=== PATIENT | female | born 1970 | race Two or more races ===

== ENCOUNTER 2018-12-09 13:48 | Emergency (ER) | payer MEDICAID ==
[~2018-12-09] VITALS: Ht 167.6 cm; Wt 106.0 kg
[2018-12-09 13:50] VITALS: BP 119/70
[2018-12-09] MEDS ORDERED: HYDROcodone/APAP 5/325 TABLET ONE (14:13)
[2018-12-09] MEDS ORDERED: HYDROcodone/APAP 5/325 TABLET PO ONE (14:30)
== END 2018-12-09 14:47 | disposition home or self-care (01) ==
LOC: ED 14:38
DX: S62.162A Displaced fracture of pisiform, left wrist, initial encounter for closed fracture (principal); E11.9 Type 2 diabetes mellitus without complications; J44.9 Chronic obstructive pulmonary disease, unspecified; I25.2 Old myocardial infarction; X58.XXXA Exposure to other specified factors, initial encounter; Y93.89 Activity, other specified; Y92.89 Other specified places as the place of occurrence of the external cause; Y99.8 Other external cause status
CPT/HCPCS: 99283

== ENCOUNTER 2020-04-01 16:32 | Inpatient (IN) | payer MEDICAID ==
[~2020-04-01] VITALS: Ht 167.6 cm; Wt 107.6 kg
[~2020-04-01 16:32] MED LIST: ALBU18HF INH; ASPI-515 PO; ATOR20TA37 PO; AZIT250T PO; B12/1TAB3 PO; BENZ-17 PO; BIOT1TAB3 PO; CEFD300C37 PO; CETI10TA18 PO; CHOL500062 PO; CLOB15CR19 TP; FLUO20CA23 PO; GABA-826 PO; GABA300C10 PO; GUAI600T31 PO; METF750T42 PO; MULT-252 PO; OMEG1CAP6 PO; OMEP20CA20 PO; PRED20TA PO; PSYL0.5243 PO
[2020-04-01] MEDS ORDERED: ALBUTEROL/IPRATROPIUM 2.5MG/0.5MG, 3 ML ONE (16:59)
[2020-04-01] MEDS ORDERED: ALBUTEROL/IPRATROPIUM 2.5MG/0.5MG, 3 ML NPPB SCH (17:00)
--- NOTE | 2020-04-01 17:08 | NUR ---
REPORT RECEIVED FROM VESTA KUHN. BREATHING TX STARTED PER ORDERS. PT PLACED ON MONITORS, VSS, NO RESPIR DISTRESS NOTED. WILL REASSESS. CONT TO MONITOR.
--- NOTE | 2020-04-01 17:40 | NUR ---
PT. COMPLETED HER BREATHING TX AND IS RESTING WITHOUT CONCERNS. CP MONITOR REMAINS IN PLACE. SIDERAILS ARE UP X 2 WITH THE CALL LIGHT IN REACH.
[2020-04-01 17:46] LABS: BASOPHILS # (AUTO) 0.05 x10^3/uL (0-0.1); BASOPHILS % (AUTO) 1 % (0-1); EOSINOPHILS % (AUTO) 6 % (1-7); LYMPHOCYTES # (AUTO) 3.46 x10^3/uL (1-3.4); LYMPHOCYTES % (AUTO) 32 % (22-44); MD NO; MEAN CORPUSCULAR HEMOGLOBIN 29.6 pg (27.0-34.8); MEAN CORPUSCULAR HGB CONC 32.9 g/dL (32.4-35.8); MONOCYTES % (AUTO) 8 % (2-9); NEUTROPHILS # (AUTO) 5.78 x10^3/uL (1.8-6.8); NEUTROPHILS % (AUTO) 54 % (42-75); PLATELET COUNT 235 x10^3/uL (130-400); RED BLOOD COUNT 5.05 x10^6/uL (3.82-5.3); RED CELL DISTRIBUTION WIDTH 13.5 % (9.6-15.2)
[2020-04-01 17:54] LABS: ALBUMIN 3.6 g/dL (3.4-5.0); ANION GAP 7 mmol/L (5-15); CALCIUM 8.5 mg/dL (8.5-10.1); CHLORIDE 107 mmol/L (98-107)
[2020-04-01 17:57] LABS: CREATININE 0.71 mg/dL (0.55-1.02)
--- NOTE | 2020-04-01 18:49 | NUR ---
REPORT GIVEN TO NOC SHIFT.
--- NOTE | 2020-04-01 19:06 | NUR ---
PER DR. BALLARD, NO ABX/ FLUIDS AT THIS TIME. THOUGH PT HAS ELEVATED WBC AND LACTIC NO SOURCE OF INFECTION NOTED PER MD.
--- NOTE | 2020-04-01 19:24 | NUR ---
PT UP TO [facility], NO ASSIST REQIRED.
[2020-04-01] MEDS ORDERED: SODIUM CHLORIDE FLUSH 10ML SYR IVF PRN (19:30)
--- NOTE | 2020-04-01 19:39 | NUR ---
REPORT TO ALISON SHEPHERD READY FOR TRANSPORT TO FLOOR
--- NOTE | 2020-04-01 19:47 | NUR ---
HOSPITALIST AT BEDSIDE TO ADMIT PT AT THIS TIME
[2020-04-01 20:04] VITALS: BP 125/74
[2020-04-01] MEDS ORDERED: ONDANSETRON ODT 4 MG PO PRN (20:30)
[2020-04-01] MEDS ORDERED: GUAIFENESIN/COD200MG-20MG/10ML LIQUID PO PRN (20:30)
[2020-04-01] MEDS ORDERED: POLYETHYLENE GLYCOL 17 GM PACKET PO PRN (20:30)
[2020-04-01] MEDS ORDERED: BISACODYL 10 MG SUPP PR PRN (20:30)
[2020-04-01] MEDS ORDERED: METF500T27 PO (20:38)
[2020-04-01] MEDS: ATORVASTATIN 20 MG TABLET PO SCH ×2 (21:00→22:21)
[2020-04-01] MEDS ORDERED: GABAPENTIN 300 MG CAPSULE PO SCH (21:00)
[2020-04-01] MEDS ORDERED: metFORMIN 500 MG TABLET PO SCH (21:00)
[2020-04-01] MEDS ORDERED: GABA-827 PO (21:08)
[2020-04-01] MEDS ORDERED: FLUO40CA2 PO (21:10)
[2020-04-01] MEDS ORDERED: HYDR-2995 PO (21:16)
[2020-04-01] MEDS: HEPARIN 5,000 UNITS/ML, 1ML SQ SCH (22:21)
[2020-04-01] MEDS: hydrOXyzine 10MG TABLET PO SCH (22:21)
[2020-04-01] MEDS: GABAPENTIN 400 MG CAPSULE PO SCH (22:21)
[2020-04-01] MEDS: SODIUM CHLORIDE FLUSH 10ML SYR IVF SCH (22:23)
[2020-04-01] MEDS: ACETAMINOPHEN 325 MG TABLET PO PRN (22:38)
[2020-04-01] MEDS: ALBUTEROL HFA 90 MCG/SPRAY INH PRN (22:38)
[2020-04-01] MEDS: ALBUTEROL-IPRATROPIUM MDI INH INH SCH (22:53)
[2020-04-02 01:02] VITALS: BP 103/59
[2020-04-02] MEDS: OMEPRAZOLE 20 MG CAPSULE.DR PO SCH (06:00)
[2020-04-02] MEDS: ALBUTEROL-IPRATROPIUM MDI INH INH SCH ×4 (06:00→21:24)
[2020-04-02] MEDS: HEPARIN 5,000 UNITS/ML, 1ML SQ SCH ×3 (06:01→22:32)
[2020-04-02 07:04] VITALS: BP 107/65
[2020-04-02] MEDS: LEVOMEFOLATE CALCIUM PO SCH (09:00)
[2020-04-02] MEDS: PSYLLIUM HUSK PO SCH (09:00)
[2020-04-02] MEDS ORDERED: metFORMIN 500 MG TABLET PO SCH (09:00)
[2020-04-02] MEDS: CALCIUM CARBONATE PO SCH (09:00)
[2020-04-02] MEDS ORDERED: GABAPENTIN 100 MG CAPSULE PO SCH (09:00)
[2020-04-02] MEDS: FLUTICASONE/VILANTEROL 200-25MCG/INH INH SCH (09:00)
[2020-04-02] MEDS: BIOTIN PO SCH (09:00)
[2020-04-02] MEDS: [UNRECOGNIZED DRUG - OTHER] PO SCH (09:00)
[2020-04-02] MEDS ORDERED: FLUOXETINE HCL 20 MG CAPSULE PO SCH (09:00)
[2020-04-02] MEDS: B12 PO SCH (09:00)
[2020-04-02] MEDS: B6 PO SCH (09:00)
[2020-04-02] MEDS: OMEGA-3/FISH OIL CAPSULE PO SCH (09:07)
[2020-04-02] MEDS: MULTIVITAMIN 1 TABLET PO SCH (09:07)
[2020-04-02] MEDS: CHOLECALCIFEROL 5,000u TAB PO SCH (09:07)
[2020-04-02] MEDS: FLUOXETINE HCL 20 MG CAPSULE PO SCH (09:07)
[2020-04-02] MEDS: SENNA/DOCUSATE TABLET PO SCH (09:08)
[2020-04-02] MEDS: ASPIRIN 81 MG TABLET EC PO SCH (09:08)
[2020-04-02] MEDS: GABAPENTIN 400 MG CAPSULE PO SCH ×2 (09:08→21:23)
[2020-04-02] MEDS: hydrOXyzine 10MG TABLET PO SCH ×3 (09:08→22:32)
[2020-04-02] MEDS: SODIUM CHLORIDE FLUSH 10ML SYR IVF SCH ×3 (09:09→21:24)
[2020-04-02] MEDS: methylPREDNISolone SOD SUCC 125 MG/2 ML IVPush SCH ×3 (10:32→22:32)
[2020-04-02] MEDS: GUAIFENESIN/DM 200-20MG, 10ML UDC PO PRN ×2 (10:34→10:35)
[2020-04-02] MEDS: DOXYCYCLINE 100MG TABLET PO SCH ×2 (10:34→21:23)
[2020-04-02] MEDS: GUAIFENESIN ER 600 MG TABLET PO SCH ×2 (10:36→21:23)
[2020-04-02 13:41] VITALS: BP 103/58
[2020-04-02] MEDS: ACETAMINOPHEN 325 MG TABLET PO PRN ×2 (14:24→22:31)
[2020-04-02] MEDS: ALBUTEROL HFA 90 MCG/SPRAY INH PRN (16:29)
[2020-04-02] MEDS ORDERED: DEXTROSE 50%, 50ML SYRINGE IVPush PRN (16:30)
[2020-04-02] MEDS ORDERED: GLUCAGON 1 MG IM PRN (16:30)
[2020-04-02] MEDS ORDERED: DEXTROSE 4 GM TAB.CHEW PO PRN (16:30)
[2020-04-02 19:38] VITALS: BP 113/67
[2020-04-02] MEDS: ATORVASTATIN 20 MG TABLET PO SCH (21:23)
[2020-04-02] MEDS: INSULIN LISPRO 100 UNITS/ML, PEN SQ-INSULIN SCH (21:24)
[2020-04-03 00:16] VITALS: BP 114/62
[2020-04-03] MEDS: methylPREDNISolone SOD SUCC 125 MG/2 ML IVPush SCH ×4 (04:45→21:54)
[2020-04-03] MEDS: HEPARIN 5,000 UNITS/ML, 1ML SQ SCH ×3 (05:54→21:54)
[2020-04-03] MEDS: OMEPRAZOLE 20 MG CAPSULE.DR PO SCH (05:54)
[2020-04-03] MEDS: ALBUTEROL-IPRATROPIUM MDI INH INH SCH ×4 (05:54→21:08)
[2020-04-03 07:07] VITALS: BP 116/59
[2020-04-03] MEDS: CHOLECALCIFEROL 5,000u TAB PO SCH (08:14)
[2020-04-03] MEDS: SENNA/DOCUSATE TABLET PO SCH (08:14)
[2020-04-03] MEDS: MULTIVITAMIN 1 TABLET PO SCH (08:14)
[2020-04-03] MEDS: DOXYCYCLINE 100MG TABLET PO SCH ×2 (08:14→21:07)
[2020-04-03] MEDS: FLUOXETINE HCL 20 MG CAPSULE PO SCH (08:14)
[2020-04-03] MEDS: GABAPENTIN 400 MG CAPSULE PO SCH ×2 (08:14→21:08)
[2020-04-03] MEDS: OMEGA-3/FISH OIL CAPSULE PO SCH (08:14)
[2020-04-03] MEDS: hydrOXyzine 10MG TABLET PO SCH ×3 (08:15→21:54)
[2020-04-03] MEDS: ASPIRIN 81 MG TABLET EC PO SCH (08:15)
[2020-04-03] MEDS: GUAIFENESIN ER 600 MG TABLET PO SCH ×2 (08:15→21:07)
[2020-04-03] MEDS: INSULIN LISPRO 100 UNITS/ML, PEN SQ-INSULIN SCH ×4 (08:16→21:08)
[2020-04-03] MEDS: FLUTICASONE/VILANTEROL 200-25MCG/INH INH SCH (08:16)
[2020-04-03] MEDS: LEVOMEFOLATE CALCIUM PO SCH (08:17)
[2020-04-03] MEDS: B12 PO SCH (08:17)
[2020-04-03] MEDS: SODIUM CHLORIDE FLUSH 10ML SYR IVF SCH ×4 (08:17→21:09)
[2020-04-03] MEDS: BIOTIN PO SCH (08:17)
[2020-04-03] MEDS: [UNRECOGNIZED DRUG - OTHER] PO SCH (08:17)
[2020-04-03] MEDS: CALCIUM CARBONATE PO SCH (08:17)
[2020-04-03] MEDS: B6 PO SCH (08:17)
[2020-04-03] MEDS: PSYLLIUM HUSK PO SCH (09:00)
[2020-04-03] MEDS: GUAIFENESIN/DM 200-20MG, 10ML UDC PO SCH ×3 (09:57→21:08)
[2020-04-03 12:45] VITALS: BP 115/72
[2020-04-03] MEDS: ACETAMINOPHEN 325 MG TABLET PO PRN (15:44)
[2020-04-03 20:17] VITALS: BP 115/66
[2020-04-03] MEDS: ATORVASTATIN 20 MG TABLET PO SCH (21:07)
[2020-04-03] MEDS ORDERED: MELATONIN 5 MG TABLET PO ONE (23:00)
[2020-04-04 01:28] VITALS: BP 142/77
[2020-04-04] MEDS: methylPREDNISolone SOD SUCC 125 MG/2 ML IVPush SCH ×2 (04:06→10:46)
[2020-04-04] MEDS: GUAIFENESIN/DM 200-20MG, 10ML UDC PO SCH ×2 (04:06→08:23)
[2020-04-04] MEDS: OMEPRAZOLE 20 MG CAPSULE.DR PO SCH (05:44)
[2020-04-04] MEDS: ALBUTEROL-IPRATROPIUM MDI INH INH SCH ×2 (05:44→11:01)
[2020-04-04] MEDS: HEPARIN 5,000 UNITS/ML, 1ML SQ SCH (05:44)
[2020-04-04 06:43] VITALS: BP 116/72
[2020-04-04] MEDS: SENNA/DOCUSATE TABLET PO SCH (08:23)
[2020-04-04] MEDS: GABAPENTIN 400 MG CAPSULE PO SCH (08:23)
[2020-04-04] MEDS: MULTIVITAMIN 1 TABLET PO SCH (08:23)
[2020-04-04] MEDS: FLUOXETINE HCL 20 MG CAPSULE PO SCH (08:23)
[2020-04-04] MEDS: OMEGA-3/FISH OIL CAPSULE PO SCH (08:23)
[2020-04-04] MEDS: ACETAMINOPHEN 325 MG TABLET PO PRN ×2 (08:23→13:07)
[2020-04-04] MEDS: DOXYCYCLINE 100MG TABLET PO SCH (08:23)
[2020-04-04] MEDS: hydrOXyzine 10MG TABLET PO SCH (08:23)
[2020-04-04] MEDS: ASPIRIN 81 MG TABLET EC PO SCH (08:24)
[2020-04-04] MEDS: LEVOMEFOLATE CALCIUM PO SCH (08:25)
[2020-04-04] MEDS: CALCIUM CARBONATE PO SCH (08:25)
[2020-04-04] MEDS: SODIUM CHLORIDE FLUSH 10ML SYR IVF SCH ×2 (08:25→08:26)
[2020-04-04] MEDS: B6 PO SCH (08:25)
[2020-04-04] MEDS: B12 PO SCH (08:25)
[2020-04-04] MEDS: [UNRECOGNIZED DRUG - OTHER] PO SCH (08:25)
[2020-04-04] MEDS: PSYLLIUM HUSK PO SCH (08:25)
[2020-04-04] MEDS: FLUTICASONE/VILANTEROL 200-25MCG/INH INH SCH (08:25)
[2020-04-04] MEDS: BIOTIN PO SCH (08:25)
[2020-04-04] MEDS: INSULIN LISPRO 100 UNITS/ML, PEN SQ-INSULIN SCH ×2 (08:26→11:02)
[2020-04-04] MEDS: GUAIFENESIN ER 600 MG TABLET PO SCH (08:27)
[2020-04-04] MEDS ORDERED: CHOLECALCIFEROL 5,000u TAB PO SCH (10:30)
[2020-04-04 13:11] VITALS: BP 123/66
[2020-04-04] MEDS ORDERED: DOXY100T PO (14:13)
[2020-04-04] MEDS ORDERED: PRED20TA PO (14:13)
[2020-04-04] MEDS ORDERED: BUDE180A INH (14:13)
[2020-04-05] MEDS ORDERED: CHOLECALCIFEROL 5,000u TAB PO SCH (09:00)
== END 2020-04-04 15:25 | disposition home or self-care (01) | DRG 189 ==
LOC: ED 19:01 → INTOOBSV 19:05 → EDIP 19:05 → 3N 20:01 → OBSVTOIN 04-02 13:46 → DCLOUNGE 04-04 15:19
PROVIDERS: ADMIT Internal Medicine; ATTEND Internal Medicine
DX: J96.01 Acute respiratory failure with hypoxia (principal); E87.2 Acidosis; J44.1 Chronic obstructive pulmonary disease with (acute) exacerbation; J45.41 Moderate persistent asthma with (acute) exacerbation; R65.10 Systemic inflammatory response syndrome (SIRS) of non-infectious origin without acute organ dysfunction; E11.42 Type 2 diabetes mellitus with diabetic polyneuropathy; K21.9 Gastro-esophageal reflux disease without esophagitis; I10 Essential (primary) hypertension; I25.2 Old myocardial infarction; Z87.891 Personal history of nicotine dependence; Z98.84 Bariatric surgery status; Z83.3 Family history of diabetes mellitus
CPT/HCPCS: 36415; 71045; 80048; 82040; 82962; 83605; 84145; 85025; 87040; G0378; J1644; J1815; J2930; J7512

== ENCOUNTER 2020-05-18 19:28 | Emergency (ER) | payer MEDICAID ==
[~2020-05-18] VITALS: Ht 170.2 cm; Wt 108.5 kg
[~2020-05-18 19:28] MED LIST changes: +BUDE180A INH; +DOXY100T PO; +FLUO40CA2 PO; +GABA-827 PO; +HYDR-2995 PO; +METF500T27 PO
[2020-05-18 19:33] VITALS: BP 117/61
--- NOTE | 2020-05-18 20:25 | NUR ---
PT STATES "I FEEL LIKE IM DRUNK" X3 HOURS. PT STATES SUDDEN ONSET WHILE DRIVING. PT CURRENTLY A&OX4, PROCTECTING OWN AIRWAY WELL. PT PLACED ON MONITORS. PT STATES HX OF DM, STATES FSBS 174 X3 HOURS AGO, WILL RECHECK. PT UP TO RR FOR UA SAMPLE, PT WIOTH STEADY GAIT, SON ESCORTED PT TO RR. WILL MEDICATED PER ORDERS.
[2020-05-18] MEDS ORDERED: MECLIZINE CHEWABLE 25 MG TAB ONE (20:27)
[2020-05-18] MEDS ORDERED: MECLIZINE CHEWABLE 25 MG TAB PO ONE (20:30)
--- NOTE | 2020-05-18 20:38 | NUR ---
PT TO CT.
[2020-05-18 20:50] LABS: BASOPHILS # (AUTO) 0.03 x10^3/uL (0-0.1); BASOPHILS % (AUTO) 0 % (0-1); EOSINOPHILS % (AUTO) 5 % (1-7); LYMPHOCYTES # (AUTO) 3.42 x10^3/uL (1-3.4); LYMPHOCYTES % (AUTO) 35 % (22-44); MD NO; MEAN CORPUSCULAR HEMOGLOBIN 29.7 pg (27.0-34.8); MEAN CORPUSCULAR HGB CONC 32.9 g/dL (32.4-35.8); MEAN CORPUSCULAR VOLUME 90.3 fL (80-100); MONOCYTES # (AUTO) 0.75 x10^3/uL (0.2-0.8); MONOCYTES % (AUTO) 8 % (2-9); NEUTROPHILS % (AUTO) 52 % (42-75); PLATELET COUNT 242 x10^3/uL (130-400); RED BLOOD COUNT 4.95 x10^6/uL (3.82-5.3); RED CELL DISTRIBUTION WIDTH 13.5 % (9.6-15.2)
--- NOTE | 2020-05-18 20:53 | NUR ---
REPORT GIVEN TO JOSÉ KUHN.
[2020-05-18 20:54] LABS: MICROSCOPIC NOT IND
[2020-05-18 20:57] LABS: ALBUMIN 3.5 g/dL (3.4-5.0); ANION GAP 7 mmol/L (5-15); CALCIUM 8.9 mg/dL (8.5-10.1); CHLORIDE 109 mmol/L (98-107)
[2020-05-18 21:00] LABS: TROPONIN I < 0.015 ng/mL (0.000-0.045)
== END 2020-05-18 21:31 | disposition home or self-care (01) ==
LOC: ED 19:57
DX: R42 Dizziness and giddiness (principal); R53.1 Weakness; E11.65 Type 2 diabetes mellitus with hyperglycemia; R51 Headache; R94.31 Abnormal electrocardiogram [ECG] [EKG]; I10 Essential (primary) hypertension; J44.9 Chronic obstructive pulmonary disease, unspecified; I25.2 Old myocardial infarction
CPT/HCPCS: 70450; 80048; 81003; 82040; 82962; 83605; 84484; 85025; 99284

== ENCOUNTER 2020-08-10 12:36 | Emergency (ER) | payer MEDICAID ==
[~2020-08-10] VITALS: Ht 167.6 cm; Wt 108.0 kg
--- NOTE | 2020-08-10 13:20 | NUR ---
INITIAL PT CONTACT. PT PRESENTS TO ED WITH DAUGHTER IN LAW C/O GENERALIZED WEAKNESS AND DIZZINESS. HX OF SAME, HAS BEEN OCCURING INTERMITTENTLY FOR THE PAST 2 MONTHS, WORSE TODAY. PT STATES LAST TIME SHE WAS SEEN FOR THIS "I WAS TOLD I HAVE VERTIGO AND GIVEN MEDICATION. I HAVE FOLLOWED UP WITH MY NEUROLOGIST AND HAD MANY SCANS, IT HAS BEEN NEGATIVE FOR EVERYTHING, RECENTLY TALKED TO MY NEUROLOGIST AND THEY UPPED MY DOSE OF MEDICATION, IT DOESNT HELP". PER FAMILY, PT HAS BEEN EXPERIENCING "A VERY STRESSFUL WEEK". PT UP TO [facility] WITH 1-2X PERSON ASSIST, SHUFFLING GAIT WITH MILD SHAKING OF BILAT LE NOTED. PT PLACED ON CONTINUOUS PULSE OX AND SCIENTIFIC EDITOR. TEARFUL UPON EXAMINATION AND STUTTERING SPEECH WHEN ANSWERING QUESTIONS. CALL LIGHT IN REACH, FALL PRECAUTIONS IN PLACE AND DAUGHTER IN LAW AT BEDSIDE. AWAITING ERP.
--- NOTE | 2020-08-10 13:56 | NUR ---
ERP AT BEDSIDE
--- NOTE | 2020-08-10 14:09 | NUR ---
PT TO BATHROOM WITH THIS RN AND DAUGHTER IN LAW VIA WHEELCHAIR.
[2020-08-10 14:24] LABS: MICROSCOPIC NOT IND
[2020-08-10] MEDS ORDERED: SODIUM CHLORIDE FLUSH 10ML SYR IVF ONE (14:30)
[2020-08-10 14:45] LABS: BASOPHILS % (AUTO) 1 % (0-1); EOSINOPHILS % (AUTO) 3 % (1-7); LYMPHOCYTES % (AUTO) 34 % (22-44); MEAN CORPUSCULAR HGB CONC 33.9 g/dL (32.4-35.8); MEAN PLATELET VOLUME 7.4 fL (7.4-10.4); MONOCYTES % (AUTO) 8 % (2-9); NEUTROPHILS % (AUTO) 54 % (42-75); PLATELET COUNT 279 x10^3/uL (130-400); RED CELL DISTRIBUTION WIDTH 13.6 % (9.6-15.2)
[2020-08-10 14:47] LABS: MD NO
[2020-08-10 14:54] LABS: ALANINE AMINOTRANSFERASE 39 U/L (12-78); ALBUMIN 3.5 g/dL (3.4-5.0); ANION GAP 8 mmol/L (5-15); CALCIUM 8.8 mg/dL (8.5-10.1); CHLORIDE 111 mmol/L (98-107)
[2020-08-10 15:05] LABS: ALKALINE PHOSPHATASE 116 U/L (45-117); BILIRUBIN,TOTAL 0.4 mg/dL (0.2-1.0); CREATINE KINASE, TOTAL 86 U/L (26-192); CREATININE 0.52 mg/dL (0.55-1.02); TOTAL PROTEIN 7.6 g/dL (6.4-8.2)
--- NOTE | 2020-08-10 15:05 | NUR ---
PT SITTING UPRIGHT ON GURNEY. PT ON CONTINUOUS PULSE OX AND SHUTTLER CAR. CALL LIGHT IN REACH, FALL PRECAUTIONS IN PLACE AND DAUGHTER IN LAW AT BEDSIDE. VSS, BUTCH.
--- NOTE | 2020-08-10 15:08 | NUR ---
PT SLEEPING ON GURNEY. ROOM AIR O2 SATURATION NOTED TO BE 88% ON ROOM AIR WHILE SLEEPING, HX OF SLEEP APNEA. PT PLACED ON 1L SUPPLEMENTAL O2 VIA NASAL CANNULA. Addendum: 08/10/20 at 1511 by YESSY PT SLEEPING ON GURNEY. ROOM AIR O2 SATURATION NOTED TO BE 88% ON ROOM AIR WHILE SLEEPING, HX OF SLEEP APNEA. PT PLACED ON 1L SUPPLEMENTAL O2 VIA NASAL CANNULA. UPON REPEAT VITALS, PT NOTED TO HAVE CLEAR SPEECH, NO STUTTER NOTED. PT STATES "I AM STARTING TO FEEL BETTER".
--- NOTE | 2020-08-10 15:56 | NUR ---
ERP AT BEDSIDE
--- NOTE | 2020-08-10 16:01 | NUR ---
PT SITTING UPRIGHT ON PINKY SMITH. PT REMAINS CALM WITH CLEAR SPEECH, NO STUTTER NOTED. PT DENIES ANY NEEDS AT THIS TIME. CONTINUOUS PULSE OX AND DIRECTOR EDUCATION IN PLACE. CALL LIGHT AND FALL PRECAUTIONS IN PLACE. DAUGHTER IN LAW REMAINS AT BEDSIDE.
[2020-08-10 16:12] LABS: HCT (SEDRATE) 42.4 % (34.6-47.8)
[2020-08-10 17:07] VITALS: BP 108/65
--- NOTE | 2020-08-10 17:09 | NUR ---
PT SITTING UPRIGHT ON PINKY SMITH. PT REMAINS CALM WITH CLEAR SPEECH, NO STUTTER NOTED. PT DENIES ANY NEEDS AT THIS TIME. CONTINUOUS PULSE OX AND CONSTRUCTION PROJECT MANAGER IN PLACE. CALL LIGHT AND FALL PRECAUTIONS IN PLACE. DAUGHTER IN LAW REMAINS AT BEDSIDE.
--- NOTE | 2020-08-10 17:24 | NUR ---
Patient and daughter in law given discharge instructions and they have confirmed that they understand the instructions. Patient ambulatory with steady gait to d/c desk.
== END 2020-08-10 17:31 | disposition home or self-care (01) ==
LOC: ED 13:44
DX: F80.81 Childhood onset fluency disorder (principal); R26.81 Unsteadiness on feet; R53.1 Weakness; R00.9 Unspecified abnormalities of heart beat; I10 Essential (primary) hypertension; E11.9 Type 2 diabetes mellitus without complications; I25.2 Old myocardial infarction; J44.9 Chronic obstructive pulmonary disease, unspecified
CPT/HCPCS: 36415; 71045; 80053; 81003; 82550; 82962; 83735; 84100; 84443; 85025; 85651; 93005; 99285

== ENCOUNTER 2021-03-21 11:04 | Emergency (ER) | payer MEDICAID ==
[~2021-03-21] VITALS: Ht 167.6 cm; Wt 110.9 kg
[~2021-03-21 11:04] MED LIST changes: -ASPI-515 PO; +ASPI-963 PO
--- NOTE | 2021-03-21 11:59 | NUR ---
RN at bedside for assessment. Pt states PCXR already completed.
--- NOTE | 2021-03-21 12:05 | NUR ---
at bedside for exam and Covid swab. Med rec done.
--- NOTE | 2021-03-21 12:11 | NUR ---
CXR results reviewed with MD at bedside.
[2021-03-21] MEDS ORDERED: GABA-827 PO (12:12)
[2021-03-21] MEDS ORDERED: FLUO60TA PO (12:12)
--- NOTE | 2021-03-21 12:13 | NUR ---
food quality technician at bedside for draw.
--- NOTE | 2021-03-21 12:21 | NUR ---
ASSUMED CARE OF PT FROM HATTIE GARRIDO. PT RESTING IN [facility] AT THIS TIME, LACEY.
--- NOTE | 2021-03-21 12:22 | NUR ---
Report given to HATTIE Brown and care transferred. RN aware pt not attached to continuous schedules VS reading.
[2021-03-21 12:31] LABS: BASOPHILS % (AUTO) 1 % (0-1); EOSINOPHILS % (AUTO) 0 % (1-7); LYMPHOCYTES % (AUTO) 24 % (22-44); MEAN CORPUSCULAR HEMOGLOBIN 29.8 pg (27.0-34.8); MEAN CORPUSCULAR HGB CONC 34.1 g/dL (32.4-35.8); MEAN PLATELET VOLUME 7.6 fL (7.4-10.4); MONOCYTES % (AUTO) 17 % (2-9); NEUTROPHILS % (AUTO) 58 % (42-75); PLATELET COUNT 224 x10^3/uL (130-400); RED BLOOD COUNT 5.18 x10^6/uL (3.82-5.3); RED CELL DISTRIBUTION WIDTH 14.2 % (9.6-15.2)
[2021-03-21 12:39] LABS: ALANINE AMINOTRANSFERASE 43 U/L (12-78); ALBUMIN 3.5 g/dL (3.4-5.0); ANION GAP 10 mmol/L (5-15); CALCIUM 8.7 mg/dL (8.5-10.1); CHLORIDE 109 mmol/L (98-107); CREATININE 0.55 mg/dL (0.55-1.02)
[2021-03-21 12:42] LABS: ALKALINE PHOSPHATASE 102 U/L (45-117); BILIRUBIN,TOTAL 0.4 mg/dL (0.2-1.0); TOTAL PROTEIN 7.8 g/dL (6.4-8.2)
[2021-03-21 13:36] VITALS: BP 135/68
== END 2021-03-21 13:41 | disposition home or self-care (01) ==
LOC: ED 12:43
DX: U07.1 COVID-19 (principal); M79.10 Myalgia, unspecified site; I10 Essential (primary) hypertension; E11.9 Type 2 diabetes mellitus without complications; I25.2 Old myocardial infarction; J44.9 Chronic obstructive pulmonary disease, unspecified
CPT/HCPCS: 36415; 71045; 80053; 83605; 85025; 99284; U0003; U0005